=== PATIENT | female | born 1935 | race Caucasian/White ===

== ENCOUNTER 2018-03-13 14:37 | Observation (INO) ==
[2018-03-13] MEDS ORDERED: MORPHINE SULFATE 4 MG/1 ML IVP ONE (14:42)
--- NOTE | 2018-03-13 14:44 | PDOC ---
Fall HPI - General Chief Complaint: Fall Stated Complaint: fall Date Seen by Provider: 03/13/18 Time Seen by Provider: 14:44 Source: POSITIVE: Patient, Spouse Nurse's Notes Reviewed & Considered: Yes - History of Present Illness Initial Comments: Patient is an 82-year-old female who presents to the emergency department after a fall. She arrives by ambulance. History is obtained from medics and subsequently was relatively low trauma fall however she was complaining of diffuse pain. Patient cannot localize her pain is crying out and screaming. It is uncertain as to what is causing her pain or distress at this time. History is essentially unobtainable. Have you received a tetanus shot in the past 10 years?: Unknown - Patient Home Medications Home Medications: Home Medications levothyroxine 100 mcg tablet 100 mcg PO QD #90 tab 09/24/17 furosemide 40 mg tablet 40 mg PO QDAY #30 tab 01/27/18 lisinopril 2.5 mg tablet 2.5 mg PO QDAY #30 tab 01/27/18 magnesium L-lactate ER 84 mg tablet,extended release 84 mg PO BID #60 tab metoprolol succinate ER 25 mg tablet,extended release 24 hr 25 mg PO QDAY #30 tab 01/27/18 omeprazole 20 mg capsule,delayed release 20 mg PO BID #180 cap 01/27/18 potassium chloride ER 10 mEq tablet,extended release 10 meq PO QDAY #30 tab 08/11 pravastatin 80 mg tablet 80 mg PO QD #30 tab 01/27/18 nystatin 100,000 unit/gram topical powder 1 applic TOPICAL BID 02/10/18 vit C 150 mg-vit E 30 unit-lutein 5 [id number] 3 150 mg capsule 1 cap PO QDAY 02/10/18 hydrocortisone 2.5 % lotion 1 applic TOPICAL QID ml 02/18/18 apixaban 2.5 mg tablet 2.5 mg PO BID 02/25/18 - Patient Allergies Allergies/Adverse Reactions: Allergies 3 Allergy/AdvReac Type Severity Reaction Status Date / Time scopolamine Allergy Severe HALLUCINATI Verified 03/13/18 14:41 ONS Penicillins Allergy Intermediate RASH Verified 03/13/18 14:41 aspirin Allergy .BLEEDING Verified 03/13/18 14:41 latex Allergy SWELLING Verified 03/13/18 14:41 Past Medical History - heen HEENT History: Macular Degeneration Additional HEENT History: BILATERAL EYES Cardiovascular History: Hyperlipidemia Respiratory History: COPD, Shortness of Breath Additional Respiratory History: HX OF TB, TX DONE IN THE 1940'S Gastrointestinal History: GERD Additional Gastrointestinal History: GASTROPARESIS Genitourinary History: Denies History Endocrine History: Hypothyroidism Musculoskeletal History: Arthritis, Joint Pain, Other (please comment) Prosthesis or Implant: Yes (RIGHT KNEE/ LEFT SHOULDER) Additional Musculoskeletal History: NECK PAIN. OSTEOPENIA. SCOLIOSIS Neurological History: Denies History Blood Disorders: Denies History Psychiatric History: Denies History History of Sexually Transmitted Diseases: No Cancer History: Denies History, Skin History of MDRO: No History of Other Communicable Diseases: (MALARIA) Alcohol Use: Rarely In the Past 12 Months, Have Used or Abuse Any Substance: None Previous Surgical History: Yes Type / Date of Surgery: T&A/ APPY/ COLONOSCOPY/ HYST/ RIGHT SHOULDER SCOPE/ TUMORS REMOVED FROM OVARY NEGATIVE FOR CA/ SKIN CA REMOVED/ RIGHT TKA/ LEFT TSA Anesthesia Reactions: No Malignant Hyperthermia: No Additional Family History: FATHER- HEART DISEASE Past Medical History Reviewed: Reviewed - No Changes ROS - Limitations ROS Limitations: Clinical Condition, Other (please comment) (Review of systems is unobtainable at this time) Fall Physical Exam - General Appearance General Appearance: POSITIVE: Moderate Distress - HEENT HEENT: POSITIVE: Head Inspection Nml, Eyes Inspection Nml - Neck Neck: POSITIVE: Other (Possible tenderness to the cervical spine but is difficult to ascertain) - Respiratory / CVS Respiratory / CVS: POSITIVE: Tachycardia, Other (There is diffuse tenderness across the chest.) - Abdomen Additional Abdominal Details: There is mild distention to the abdomen. Diffuse tenderness to palpation. Decreased bowel sounds are noted. - Neuro / Psych Neuro / Psych: POSITIVE: Other (Patient is oriented only to person. Not to place or time. Appears to have poor insight to her medical conditions) - Skin Skin: POSITIVE: Warm - Back Back: POSITIVE: Other (Diffuse tenderness across the back both midline and paraspinal.) - Extremities Additional Extremities Details: There is 1+ edema in the lower extremities bilaterally and no obvious tenderness to palpation or deformity. No tenderness to palpation of the upper extremities. Fall Progress - Results Reviewed by me Xrays/CTs/US Reviewed by me: Yes Lab Results Reviewed by Me: Yes CBC and BMP: 03/13/18 14:50 03/13/18 14:50 Lab Results:: Laboratory Results 3 03/13/18 03/13/18 03/13/18 14:50 14:50 14:50 WBC 7.39 RBC 5.17 Hgb 12.9 Hct 42.6 MCV 82.4 MCH 25.0 L MCHC 30.3 L RDW Std Deviation 55.4 H RDW Coeff of Mandi 18.7 H Plt Count 434 H MPV 9.5 Immature Gran % (Auto) 0.1 Neut % (Auto) 70.0 Lymph % (Auto) 21.8 [place] % (Auto) 7.7 Eos % (Auto) 0 Baso % (Auto) 0.4 Immature Gran # (Auto) 0.01 Neut # (Auto) 5.17 Lymph # (Auto) 1.61 [place] # (Auto) 0.57 Eos # (Auto) 0 Baso # (Auto) 0.03 WBC Morphology Comment Normal morphology Plt Morphology Comment Normal morphology RBC Morph Comment Normal morphology PT 14.3 H INR 1.38 Sodium 140 Potassium 3.7 L Chloride 107 Carbon Dioxide 24 Anion Gap 9 BUN 9 Creatinine 0.8 BUN/Creatinine Ratio 11.25 Glucose 117 H Calculated Osmolality 289.0 Calcium 10.8 H Total Bilirubin 2.0 H AST 31 ALT 27 Alkaline Phosphatase 140 H Total Protein 7.7 Albumin 4.2 Globulin 3.5 Albumin/Globulin Ratio 1.20 L - Patient's Progress MDM / ED Course: Patient is an 82-year-old female who presents to the emergency department after a fall. Vital signs are notable for tachycardia and examination demonstrates an elderly female in moderate distress with diffuse pain. Of note patient is anticoagulated. This appears likely to be from atrial fibrillation via chart review. Given that she seemed to have significant pain and it was difficult to ascertain the location she did undergo CT scan of head neck chest abdomen pelvis. Her laboratory studies largely unremarkable heart rate improved into the 130s with time and pain control she is given morphine here. Patient's imaging studies suggest congestive heart failure with cardiomegaly and bilateral pleural effusions. Patient was noted to be hypoxic into the mid 80s she was placed on oxygen here. She does appear to be in somewhat of a decompensated state as above it's difficult to ascertain the underlying etiology. Given patient's poor insight, hypoxia, and findings of volume overloaded and I do not feel comfortable sending patient home for further outpatient treatment I consulted the hospitalist and she will be admitted for further care. Patient Care Time - Estimated PCT Patient Care Time (In Minutes): 45 Vital Signs - Recent Vital Signs Vital Signs: Vital Signs (Last 8 hours) Temp Pulse Resp BP Pulse Ox 03/13/18 16:12 98.2 F 150 H 18 108/72 93 03/13/18 15:35 98.2 F 150 H 18 108/72 93 - VS Reviewed Vital Signs Reviewed: Yes Discharge Clinical Impression: Pain, Altered mental status Volume overload Qualifiers: Hypervolemia type: other Qualified Code(s): E87.79 - Other fluid overload Discharge Disposition: Admit to Observation Condition: Fair
[2018-03-13 15:03] LABS: BASOPHILS # (AUTO) 0.03 10*3/UL; BASOPHILS % (AUTO) 0.4 % (0-1); EOSINOPHILS # (AUTO) 0 10*3/UL; EOSINOPHILS % (AUTO) 0 % (0-8); Hematocrit [HCT] 42.6 % (37.0-47.0); Hemoglobin [HGB] 12.9 g/dL (12.0-16.0); LYMPHOCYTES # (AUTO) 1.61 10*3/uL; MEAN CORPUSCULAR HGB CONC 30.3 g/dL (33-37); MEAN CORPUSCULAR VOLUME 82.4 FL (81-99); MEAN PLATELET VOLUME 9.5 FL (7.4-12.2); MONOCYTES # (AUTO) 0.57 10*3/UL (0.3-0.8); MONOCYTES % (AUTO) 7.7 % (5-15); NEUTROPHILS # (AUTO) 5.17 10*3/UL; RED BLOOD COUNT 5.17 10^6/uL (4.20-5.40)
[2018-03-13 15:04] LABS: PLATELET MORPHOLOGY COMMENT NORMAL MORPHOLOGY (NORM); RBC MORPHOLOGY COMMENT NORMAL MORPHOLOGY (NORM); WBC MORPHOLOGY COMMENT NORMAL MORPHOLOGY (NORM)
[2018-03-13 15:17] LABS: BLOOD UREA NITROGEN 9 mg/dL (7-22); BUN/CREATININE RATIO 11.25 (6-20); SERUM ALBUMIN 4.2 g/dL (3.5-4.8)
--- NOTE | 2018-03-13 16:29 | DI ---
CT Head WO Contrast 03/13/2018 2:42 PM History: Trauma Comparison: CT head 01/03/2018. Procedure: Noncontrast axial CT images through the head were obtained at 5 mm. Findings: There is no intracranial hemorrhage or extra-axial fluid collection. The ventricles are sy mmetric. There is moderate global atrophy which is within the expected range for age. Decreased att enuation in the periventricular and subcortical white matter is consistent with moderate chronic smal l vessel ischemic changes. There is otherwise normal wang-white differentiation without focal mass o r mass-effect. The visualized portions of the paranasal sinuses and mastoid air cells are clear. The re are postsurgical changes of the bilateral globes. Review of the osseous structures demonstrate no depressed calvarial fracture or aggressive osseous lesion. The facial soft tissues are unremarkable. Impression: 1. No acute intracranial findings. 2. Chronic changes as above.
--- NOTE | 2018-03-13 16:38 | DI ---
CT Cervical Spine WO Contrast 03/13/2018 2:42 PM History: Trauma Comparison: None. Procedure: Noncontrast CT images were obtained through the cervical spine for review in the axial, s agittal, and coronal planes. Findings: Osseous structures show no acute fracture. There is grade 1 anterolisthesis of C3 on C4 and C4 on C5. There is reversal of the normal cervical lordosis. Vertebral body heights are maintained. Moderate to severe intervertebral disc height loss is noted from the C3/4 through C6/7 levels. The sp ondylolisthesis at the C4/5 level results in osseous narrowing of the central canal to 10 mm. Uncover tebral joint and facet arthrosis results in osseous neuroforaminal narrowing as follows: Mild bilater al C2/3, mild right and severe left C3/4, severe right C4/5, moderate bilateral C5/6, moderate bilate ral C6/7, mild bilateral C7/T1. The pre-vertebral soft tissues are within normal limits. There is no cervical lymphadenopathy. Vascul ar structures are grossly intact, though evaluation is limited in the absence of intravenous contrast . The visualized parotid and thyroid glands exhibit normal unenhanced morphology. There is debris in the bilateral external auditory canals. Impression: 1. No evidence of acute cervical spine fracture. There is multilevel spondylolisthesis as outlined ab ove. Although this is most likely degenerative in nature, an MRI may be obtained if there is clinical concern for ligamentous injury. 2. There is reversal of the normal cervical lordosis which can be positional or secondary to muscle s pasm induced by pain. 3. Multilevel degenerative disc disease.
--- NOTE | 2018-03-13 17:00 | DI ---
CT Chest/Abdomen/Pelvis W Contrast 03/13/2018 2:42 PM History: trauma Comparison: CT abdomen/pelvis 01/03/2018. Technique: Contrast enhanced CT angiogram of the chest, abdomen, and pelvis per routine trauma protoc ol after the administration of 75 mL of Isovue intravenous contrast. There was no immediate complicat ion. Findings: The patient was uncooperative during scanning; therefore, the contrast bolus timing is subo ptimal for the evaluation of trauma. Patient motion creates artifact that limits evaluation of fine a natomic detail. Chest: There is no CT evidence of acute traumatic aortic injury. There are no main or segmental pulmo nary emboli. There is no CT evidence of mediastinal hematoma. Evaluation of the lungs demonstrates m oderate right and small left pleural effusions. There is atelectasis noted medially in the right midd le lobe. There is also bibasilar dependent atelectasis. Heart size is enlarged no pericardial effusio n. There are atheromatous aortic and coronary artery calcifications. The main pulmonary artery is dil ated at 4.9 cm, a finding associated with pulmonary artery hypertension. There is no mediastinal or h ilar lymphadenopathy. Abdomen/Pelvis: There is borderline hepatosplenomegaly. There is normal CT appearance of the gallblad geoff, adrenal glands, kidneys, and pancreas. Hollow viscus organs demonstrate normal course and maximino susana. There is Perihepatic, perisplenic, and pelvic free fluid with no free intraperitoneal air. No ab dominopelvic lymphadenopathy is present. Vascular structures are intact with atheromatous aortic calc ifications. The uterus is absent and the adnexa are unremarkable, though better evaluated with pelvic ultrasound. Musculoskeletal: There is no acute osseous abnormality. Diffuse anasarca is noted. The patient is sta tus post left shoulder hemiarthroplasty and there is a surgical anchor in the anterolateral right hum eral head consistent with rotator cuff repair. Multilevel degenerative disc disease of the thoracolum bar spine is noted with grade 1 anterolisthesis of L4 on L5. There is rectus diastases and a 1.7 cm f at-containing umbilical hernia. There are small bilateral fat-containing inguinal hernias. Impression: 1. No pneumothorax or new consolidation. There are bilateral pleural effusions, cardiomegaly, and lelo dence of pulmonary hypertension, with additional chronic findings as above. 2. There is anasarca and ascites which limits evaluation for trauma. Within this limitation and given the suboptimal bolus timing, there is no CT evidence of acute intra-abdominal or pelvic pathology. 3. No acute osseous abnormality.
[2018-03-13] MEDS ORDERED: LIDOCAINE W/ SODIUM BICARB 0.5 ML SYR SUBD PRN (18:44)
[2018-03-13] MEDS ORDERED: DOCUSATE 100 MG CAPSULE PO PRN (18:44)
[2018-03-13] MEDS ORDERED: ONDANSETRON 4 MG/2 ML VIAL IVP PRN (18:44)
[2018-03-13] MEDS ORDERED: CALCIUM CARBONATE 500 MG (TUMS) CHEWABLE TABLET PO PRN (18:44)
--- NOTE | 2018-03-13 18:46 | PDOC ---
HPI - History of Present Illness Date of Service: 03/13/18 Time of Service: 19:00 Chief Complaint: Fell at home History of Present Illness: This is an 82 years old female with medical history significant for history of congestive heart failure with ejection fraction 40%, history of atrial fibrillation, history of for malignant melanoma with recurrence now in the right upper arm soft tissue, hypothyroidism, advanced dementia and hypercholesterolemia who was brought to the hospital because she fall at home. Apparently The patient and her were unable to give a history but she appeared in discomfort so she was given morphine. Had the a CT of chest abdomen and pelvis and also CT of the head and spine there was no evidence of trauma but she had evidence of cardiomegaly and congestive heart failure and bilateral effusions. Because of the congestive heart failure and weakness she was admitted. No meaningful information can be obtained from the patient. She doesn't know her birthday. She does know where she is at and she doesn't know how did she end up in the hospital. She does not appear in distress though. She doesn't know what she takes. The information were obtained from reviewing the medical records. Past Medical History Medical History: 1.COPD. 2. Hypothyroidism. 3. Gastroparesis. 3. Macular degeneration. 4. history of TB in the 1940s treated. 5. History of congestive heart failure last ejection fraction was 40% based on an echo done in [place]. 6. History of A. fib. 7. Advanced dementia. 8. History of melanoma, now recurrent the soft tissue of the right posteriorly Surgical History: 1. Status post hysterectomy. 2. Status post thyroidectomy. 3. Status post knee replacement. 4. Status post shoulder replacement. 5. Status post the melanoma surgery before Past Social History: Apparently she does not smoke or drink the records. She lives with her . But recently there appears that the she was the treated at [facility] for congestive heart failure and A. fib and from there she went to the memory unit at [facility] but discharge home per family requests on March 01. Tobacco Use: Never Smoker In the Past 12 Months, Have Used or Abuse Any of the Following Substance: None Medication / Allergies Home Medications: Home Medications 3 Medication Instructions Recorded Confirmed Type levothyroxine 100 mcg tablet 100 mcg PO QD #90 tab 09/24/17 03/13/18 Rx furosemide 40 mg tablet 40 mg PO QDAY #30 tab 01/27/18 03/13/18 Rx lisinopril 2.5 mg tablet 2.5 mg PO QDAY #30 tab 01/27/18 03/13/18 Rx magnesium L-lactate ER 84 mg 84 mg PO BID #60 tab 01/27/18 03/13/18 Rx tablet,extended release metoprolol succinate ER 25 mg 25 mg PO QDAY #30 tab 01/27/18 03/13/18 Rx tablet,extended release 24 hr omeprazole 20 mg capsule,delayed 20 mg PO BID #180 cap 01/27/18 03/13/18 Rx release potassium chloride ER 10 mEq 10 meq PO QDAY #30 tab 01/27/18 03/13/18 Rx tablet,extended release pravastatin 80 mg tablet 80 mg PO QD #30 tab 01/27/18 03/13/18 Rx nystatin 100,000 unit/gram topical 1 applic TOPICAL BID 02/10/18 03/13/18 History powder vit C 150 mg-vit E 30 unit-lutein 1 cap PO QDAY 02/10/18 03/13/18 History 5 [id number] 3 150 mg capsule hydrocortisone 2.5 % lotion 1 applic TOPICAL QID ml 02/18/18 03/13/18 History apixaban 2.5 mg tablet 2.5 mg PO BID 02/25/18 03/13/18 History Allergies/Adverse Reactions: Allergies 3 Allergy/AdvReac Type Severity Reaction Status Date / Time scopolamine Allergy Severe HALLUCINATI Verified 03/13/18 14:41 ONS Penicillins Allergy Intermediate RASH Verified 03/13/18 14:41 aspirin Allergy .BLEEDING Verified 03/13/18 14:41 latex Allergy SWELLING Verified 03/13/18 14:41 Review of Systems - Review of Systems ROS Unobtainable: Due to Mental Status Exam - Vitals Vital Signs: Vital Signs Temperature 98.2 F Temperature Source Temporal Artery Scan Pulse Rate [Pulse Oximeter] 150 Respiratory Rate 18 Blood Pressure [Left Arm] 108/72 Pulse Ox 93 Oxygen Delivery Method Room Air Height 5 ft 4 in Weight 215 lb - General General Appearance: No Acute Distress, Cooperative - Head Head Exam: Normal Inspection - Eye Eye Exam: POSITIVE: Normal Appearance - ENT ENT Exam: POSITIVE: Normal Exam - Neck Neck Exam: Normal Inspection - Respiratory Respiratory Exam: POSITIVE: Clear to Auscultation - Bilaterally - Cardiovascular Cardiovascular Exam: POSITIVE: Irregular Rhythm, Tachycardia - GI/Abdominal GI/Abdominal Exam: POSITIVE: Normal Bowel Sounds, Non Tender, Non Distended, Soft, No Organomegaly - Rectal Rectal Exam: POSITIVE: Deferred - External Exam: POSITIVE: Deferred - Extremities Extremities Exam: POSITIVE: +1 Edema Additional Extremities Exam Details: There is a mass on the right upper arm posteriorly she is on. - Neurological Neurological Exam: POSITIVE: Alert, CN II-XII Intact, No Facial Droop, Speech Intact / Clear Additional Neurological Exam Details: She follows some of the command she moves all her limbs. - Psychiatric Psychiatric Exam: POSITIVE: Flat Affect Results - Labs CBC and BMP: 03/13/18 14:50 03/13/18 14:50 - Imaging Status: Report Reviewed by Me (1. No pneumothorax or new consolidation. There are bilateral pleural effusions, cardiomegaly, and evidence of pulmonary hypertension, with additional chronic findings as above. 2. There is anasarca and ascites which limits evaluation for trauma. Within this limitation and given the suboptimal bolus timing, there is no CT evidence of acute intra- abdominal or pelvic pathology. CT head no acute intracranial findings) Assessment and Plan - Patient Problems (1) Heart failure Current Visit: No Status: Chronic Comment: We will put her on IV diuretics. Continue with the lisinopril and metoprolol. Code(s): I50.9 - Heart failure, unspecified Qualifiers: Heart failure type: systolic Heart failure chronicity: chronic Qualified Code(s): I50.22 - Chronic systolic (congestive) heart failure (2) Atrial fibrillation Current Visit: Yes Status: Acute Comment: Heart rate is not controlled will give her additional dose of metoprolol. She is on eliquis will continue with it for now Code(s): I48.91 - Unspecified atrial fibrillation (3) Hypothyroidism Current Visit: No Status: Chronic Comment: We'll check her TSH will continue with the Synthroid. Not sure whether she takes her medications.
[2018-03-13] MEDS ORDERED: FUROSEMIDE 10 MG/1 ML - 2 ML VIAL IVP ONE (19:08)
[2018-03-13] MEDS ORDERED: LIDOCAINE HCL 2 % 10 ML JELLY URO-JECT TOPICAL PRN (19:09)
[2018-03-13] MEDS ORDERED: Metoprolol TARTRATE Tab 25 MG TAB PO ONE (19:10)
[2018-03-13 19:44] VITALS: RESP 20
[2018-03-13 20:47] LABS: BILIRUBIN,URINE NEGATIVE (NEG); CLARITY,URINE Slightly Cloudy (CLEAR); COLOR,URINE YELLOW (Y); GLUCOSE, URINE (UA) NEGATIVE (NEG); OCCULT BLOOD,URINE NEGATIVE (NEG); PH,URINE 5.5 (5.0-8.5); PROTEIN,URINE NEGATIVE (NEG); UROBILINOGEN,URINE 0.2 EU/dL (0.2)
[2018-03-13 20:51] LABS: SQUAMOUS EPITHELIAL CELL,UR FEW; URINE CRYSTALS FEW; URINE SAMPLE TYPE VOIDED SPECIMEN
[2018-03-13] MEDS ORDERED: Pravastatin 80mg Tab PO SCH (21:00)
[2018-03-13] MEDS: ACETAMINOPHEN 325 MG TABLET PO PRN (21:43)
[2018-03-13] MEDS: Apixaban Tab 2.5 MG TABLET PO SCH (21:43)
[2018-03-13] MEDS: OMEPRAZOLE 20 MG CAPSULE PO SCH (21:43)
[2018-03-14] MEDS: ACETAMINOPHEN 325 MG TABLET PO PRN ×2 (04:09→11:34)
[2018-03-14 05:04] LABS: BLOOD UREA NITROGEN 10 mg/dL (7-22); BUN/CREATININE RATIO 14.28 (6-20)
[2018-03-14] MEDS ORDERED: LEVOTHYROXINE 100 MCG TABLET PO SCH (05:30)
[2018-03-14] MEDS ORDERED: FUROSEMIDE 10 MG/1 ML - 4 ML IVP SCH (07:00)
[2018-03-14] MEDS: Apixaban Tab 2.5 MG TABLET PO SCH (08:14)
[2018-03-14] MEDS: OMEPRAZOLE 20 MG CAPSULE PO SCH (08:14)
[2018-03-14] MEDS ORDERED: METOPROLOL SUCCINATE 25 MG SR 24H TABLET PO SCH (09:00)
[2018-03-14] MEDS ORDERED: Potassium Chloride Tab 10 MEQ TAB PO SCH (09:00)
[2018-03-14] MEDS ORDERED: LISINOPRIL 5 MG TABLET PO SCH (09:00)
[2018-03-14] MEDS ORDERED: METOPROLOL SUCCINATE 50 MG SR 24H TABLET PO ONE (11:41)
[2018-03-14] MEDS ORDERED: METOPROLOL SUCCINATE 50 MG SR 24H TABLET PO SCH ×3 (11:45)
--- NOTE | 2018-03-14 12:36 | DCSUMMARY ---
Hospitalization Summary Hospital Course: Final Discharge Diagnosis: Current Visit Problems Problem Status Onset Code Atrial fibrillation Acute I48.91 Altered mental status Acute R41.82 Pain Acute R52 Volume overload Acute E87.70 Congestive heart failure Right arm melanoma with positive biopsy Diagnostic Data, Laboratory Data, and Procedures of Signifigance: Laboratory Results 03/13/18 03/13/18 03/13/18 Range/Units 14:50 14:50 14:50 WBC 7.39 (4.8-10.8) 10^3/uL RBC 5.17 (4.20-5.40) 10^6/uL Hgb 12.9 (12.0-16.0) g/dL Hct 42.6 (37.0-47.0) % MCV 82.4 (81-99) FL MCH 25.0 L (27-31) PG MCHC 30.3 L (33-37) g/dL RDW Std Deviation 55.4 H (39-50) fL RDW Coeff of Mandi 18.7 H (11.5-14.5) % Plt Count 434 H (140-350) 10*3/uL MPV 9.5 (7.4-12.2) FL Immature Gran % (Auto) 0.1 (0-5) % Neut % (Auto) 70.0 (50-80) % Lymph % (Auto) 21.8 (10-50) % Wallace % (Auto) 7.7 (5-15) % Eos % (Auto) 0 (0-8) % Baso % (Auto) 0.4 (0-1) % Immature Gran # (Auto) 0.01 10*3/UL Neut # (Auto) 5.17 10*3/UL Lymph # (Auto) 1.61 10*3/uL Wallace # (Auto) 0.57 (0.3-0.8) 10*3/UL Eos # (Auto) 0 10*3/UL Baso # (Auto) 0.03 10*3/UL WBC Morphology Comment Normal morphology (NORM) Plt Morphology Comment Normal morphology (NORM) RBC Morph Comment Normal morphology (NORM) PT 14.3 H (9.7-11.4) secs INR 1.38 (0.00-5.90) N/A Sodium 140 (135-145) meq/L Potassium 3.7 L (3.8-5.2) meq/L Chloride 107 (98-112) meq/L Carbon Dioxide 24 (23-33) meq/L Anion Gap 9 (5-20) BUN 9 (7-22) mg/dL Creatinine 0.8 (0.50-1.20) mg/dL BUN/Creatinine Ratio 11.25 (6-20) Glucose 117 H (78-110) mg/dL Calculated Osmolality 289.0 (267-292) mOsm/kg Calcium 10.8 H (8.7-10.7) mg/dL Total Bilirubin 2.0 H (0.3-1.2) mg/dL AST 31 (8-39) IU/L ALT 27 (9-52) IU/L Alkaline Phosphatase 140 H (38-126) IU/L Troponin I (< 0.040) ng/mL NT-Pro-B Natriuret Pep (0-450) PG/ML Total Protein 7.7 (6.1-8.0) g/dL Albumin 4.2 (3.5-4.8) g/dL Globulin 3.5 (2.50-4.10) g/dL Albumin/Globulin Ratio 1.20 L (1.3-2.0) mg/g TSH (0.2700-4.2000) uIU/mL Free T4 (0.93-1.71) ng/dL Ur Collection Type Urine Color (Y) Urine Clarity (CLEAR) Urine pH (5.0-8.5) Ur Specific [place] (1.005-1.030) Urine Protein (NEG) mg/dl Urine Glucose (UA) (NEG) mg/dL Urine Ketones (NEG) Urine Occult Blood (NEG) Urine Nitrate (NEG) Urine Bilirubin (NEG) Urine Urobilinogen (0.2) EU/dL Ur Leukocyte Esterase (NEG) Urine RBC (NONE) /hpf Urine WBC (NONE) Ur Squamous Epith Cells (NONE) Ur Renal Epithelial Cell (NONE) Urine Crystals Urine Bacteria (NONE) Urine Casts (NONE) Urine Mucus (NONE) Urine Trichomonas (NONE) Urine Yeast (NONE) Ur Culture Indicated? 03/13/18 03/13/18 03/13/18 Range/Units 19:27 19:27 19:27 WBC (4.8-10.8) 10^3/uL RBC (4.20-5.40) 10^6/uL Hgb (12.0-16.0) g/dL Hct (37.0-47.0) % MCV (81-99) FL MCH (27-31) PG MCHC (33-37) g/dL RDW Std Deviation (39-50) fL RDW Coeff of Mandi (11.5-14.5) % Plt Count (140-350) 10*3/uL MPV (7.4-12.2) FL Immature Gran % (Auto) (0-5) % Neut % (Auto) (50-80) % Lymph % (Auto) (10-50) % Wallace % (Auto) (5-15) % Eos % (Auto) (0-8) % Baso % (Auto) (0-1) % Immature Gran # (Auto) 10*3/UL Neut # (Auto) 10*3/UL Lymph # (Auto) 10*3/uL Wallace # (Auto) (0.3-0.8) 10*3/UL Eos # (Auto) 10*3/UL Baso # (Auto) 10*3/UL WBC Morphology Comment (NORM) Plt Morphology Comment (NORM) RBC Morph Comment (NORM) PT (9.7-11.4) secs INR (0.00-5.90) N/A Sodium (135-145) meq/L Potassium (3.8-5.2) meq/L Chloride (98-112) meq/L Carbon Dioxide (23-33) meq/L Anion Gap (5-20) BUN (7-22) mg/dL Creatinine (0.50-1.20) mg/dL BUN/Creatinine Ratio (6-20) Glucose (78-110) mg/dL Calculated Osmolality (267-292) mOsm/kg Calcium (8.7-10.7) mg/dL Total Bilirubin (0.3-1.2) mg/dL AST (8-39) IU/L ALT (9-52) IU/L Alkaline Phosphatase (38-126) IU/L Troponin I < 0.012 (< 0.040) ng/mL NT-Pro-B Natriuret Pep 3520 H (0-450) PG/ML Total Protein (6.1-8.0) g/dL Albumin (3.5-4.8) g/dL Globulin (2.50-4.10) g/dL Albumin/Globulin Ratio (1.3-2.0) mg/g TSH 50.7 H (0.2700-4.2000) uIU/mL Free T4 0.40 L (0.93-1.71) ng/dL Ur Collection Type Urine Color (Y) Urine Clarity (CLEAR) Urine pH (5.0-8.5) Ur Specific [place] (1.005-1.030) Urine Protein (NEG) mg/dl Urine Glucose (UA) (NEG) mg/dL Urine Ketones (NEG) Urine Occult Blood (NEG) Urine Nitrate (NEG) Urine Bilirubin (NEG) Urine Urobilinogen (0.2) EU/dL Ur Leukocyte Esterase (NEG) Urine RBC (NONE) /hpf Urine WBC (NONE) Ur Squamous Epith Cells (NONE) Ur Renal Epithelial Cell (NONE) Urine Crystals Urine Bacteria (NONE) Urine Casts (NONE) Urine Mucus (NONE) Urine Trichomonas (NONE) Urine Yeast (NONE) Ur Culture Indicated? 03/13/18 03/14/18 Range/Units 20:40 04:19 WBC (4.8-10.8) 10^3/uL RBC (4.20-5.40) 10^6/uL Hgb (12.0-16.0) g/dL Hct (37.0-47.0) % MCV (81-99) FL MCH (27-31) PG MCHC (33-37) g/dL RDW Std Deviation (39-50) fL RDW Coeff of Mandi (11.5-14.5) % Plt Count (140-350) 10*3/uL MPV (7.4-12.2) FL Immature Gran % (Auto) (0-5) % Neut % (Auto) (50-80) % Lymph % (Auto) (10-50) % Wallace % (Auto) (5-15) % Eos % (Auto) (0-8) % Baso % (Auto) (0-1) % Immature Gran # (Auto) 10*3/UL Neut # (Auto) 10*3/UL Lymph # (Auto) 10*3/uL Wallace # (Auto) (0.3-0.8) 10*3/UL Eos # (Auto) 10*3/UL Baso # (Auto) 10*3/UL WBC Morphology Comment (NORM) Plt Morphology Comment (NORM) RBC Morph Comment (NORM) PT (9.7-11.4) secs INR (0.00-5.90) N/A Sodium 142 (135-145) meq/L Potassium 4.4 (3.8-5.2) meq/L Chloride 109 (98-112) meq/L Carbon Dioxide 23 (23-33) meq/L Anion Gap 10 (5-20) BUN 10 (7-22) mg/dL Creatinine 0.7 (0.50-1.20) mg/dL BUN/Creatinine Ratio 14.28 (6-20) Glucose 96 (78-110) mg/dL Calculated Osmolality 292.0 (267-292) mOsm/kg Calcium 10.2 (8.7-10.7) mg/dL Total Bilirubin (0.3-1.2) mg/dL AST (8-39) IU/L ALT (9-52) IU/L Alkaline Phosphatase (38-126) IU/L Troponin I (< 0.040) ng/mL NT-Pro-B Natriuret Pep (0-450) PG/ML Total Protein (6.1-8.0) g/dL Albumin (3.5-4.8) g/dL Globulin (2.50-4.10) g/dL Albumin/Globulin Ratio (1.3-2.0) mg/g TSH (0.2700-4.2000) uIU/mL Free T4 (0.93-1.71) ng/dL Ur Collection Type Voided specimen Urine Color Yellow (Y) Urine Clarity Slightly cloudy (CLEAR) Urine pH 5.5 (5.0-8.5) Ur Specific [place] 1.015 (1.005-1.030) Urine Protein Negative (NEG) mg/dl Urine Glucose (UA) Negative (NEG) mg/dL Urine Ketones Negative (NEG) Urine Occult Blood Negative (NEG) Urine Nitrate Negative (NEG) Urine Bilirubin Negative (NEG) Urine Urobilinogen 0.2 (0.2) EU/dL Ur Leukocyte Esterase Trace (NEG) Urine RBC None (NONE) /hpf Urine WBC 3-5 (NONE) Ur Squamous Epith Cells Few (NONE) Ur Renal Epithelial Cell None (NONE) Urine Crystals Few Urine Bacteria None (NONE) Urine Casts None (NONE) Urine Mucus None (NONE) Urine Trichomonas None (NONE) Urine Yeast None (NONE) Ur Culture Indicated? 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 No doubt this could be contributing to her anasarca state in congestive heart failure might need to be replaced IV and needing the programming development project manager. Also patient presents with A. fib RVR rate controlled with the beta lorna extra dose given and congestive heart failure with elevated BNP bilateral pleural effusions and anasarca. She will be needing cardiology expertise with echocardiogram and aggressive diuresis and monitoring of her kidney function might require nephrology help as well I did discuss the case with the which as agreed with the transfer and would like for her to receive the best care possible . I did tell him that I do not have a endo tech here or senior courtroom clerk and he agrees with the transfer and to have these specialist take care of her his . Espinosa catheter has been placed. The right arm melanoma is being treated by Dr. aly Hernandez he is a general surgeon here in [place]. She is aware of the pathology report and is been in communication with the family for treatment. I believe patient and has not been taking medication and is an not capable of monitoring her care at home I did tell him this on the phone. Patient might need IV steroids IV Synthroid cardiology and nephrology and programming development project manager which I do not have available at this facility On the date of discharge, the patient was examined: Gen.: No acute distress, alert, nontoxic Heart: Regular rate and rhythm, no murmurs, clicks, gallops, or rubs Lungs: Clear to auscultation bilaterally, breathing is nonlabored Abdomen/GI: Normal tones on auscultation, soft, nontender, nondistended Musculoskeletal/extremities: No clubbing, cyanosis, or edema Vitals reviewed and are listed below Vital Signs (24 hrs) Temp Pulse Pulse Resp BP Pulse Ox 03/14/18 08:12 97 F 108 H 20 106/75 92 03/14/18 07:00 86 90 03/14/18 04:37 97.8 F 90 20 112/65 96 03/14/18 03:00 94 03/14/18 01:00 97.0 F 95 98 03/13/18 23:00 98 03/13/18 20:15 88 03/13/18 20:10 129 H 03/13/18 19:43 133 H 20 118/79 90 03/13/18 19:05 125 H 18 03/13/18 18:55 94 03/13/18 18:50 98.4 F 131 H 20 131/75 91 03/13/18 16:12 98.2 F 150 H 18 108/72 93 03/13/18 15:35 98.2 F 150 H 18 108/72 93 Assessment and Plan: 1. As per discharge assessments above 2. Disposition: Transferred to [facility] accepted by Dr. Jonathan Orozco in the emergency room 3. Condition on discharge, stable and improved. 4. Diet: regular diet 5. Activities: resume normal activities 6. Follow-Up: 1. PCP 2. 7. Medications at the Time of Discharge: Home Medications 3 Medication Instructions Recorded Confirmed Type levothyroxine 100 mcg tablet 100 mcg PO QD #90 tab 09/24/17 03/13/18 Rx furosemide 40 mg tablet 40 mg PO QDAY #30 tab 01/27/18 03/13/18 Rx lisinopril 2.5 mg tablet 2.5 mg PO QDAY #30 tab 01/27/18 03/13/18 Rx magnesium L-lactate ER 84 mg 84 mg PO BID #60 tab 01/27/18 03/13/18 Rx tablet,extended release metoprolol succinate ER 25 mg 25 mg PO QDAY #30 tab 01/27/18 03/13/18 Rx tablet,extended release 24 hr omeprazole 20 mg capsule,delayed 20 mg PO BID #180 cap 01/27/18 03/13/18 Rx release potassium chloride ER 10 mEq 10 meq PO QDAY #30 tab 01/27/18 03/13/18 Rx tablet,extended release pravastatin 80 mg tablet 80 mg PO QD #30 tab 01/27/18 03/13/18 Rx nystatin 100,000 unit/gram topical 1 applic TOPICAL BID 02/10/18 03/13/18 History powder vit C 150 mg-vit E 30 unit-lutein 1 cap PO QDAY 02/10/18 03/13/18 History 5 ip-cpaubens-ezyca 3 150 mg capsule hydrocortisone 2.5 % lotion 1 applic TOPICAL QID ml 02/18/18 03/13/18 History apixaban 2.5 mg tablet 2.5 mg PO BID 02/25/18 03/13/18 History Active Medications Generic Name Dose Route Start Last Admin Trade Name Freq PRN Reason Stop Dose Admin Acetaminophen 650 mg 03/13/18 18:44 03/14/18 11:34 Tylenol PO 650 mg Q6H PRN Administration Pain or Fever Apixaban 2.5 mg 03/13/18 21:00 03/14/18 08:14 Eliquis PO 2.5 mg BID ARIEL Administration Calcium Carbonate 1 - 2 tab 03/13/18 18:44 Tums PO Q6H PRN Heartburn Docusate Sodium 100 mg 03/13/18 18:44 Colace PO BID PRN Constipation Sodium Chloride 25 mls @ 200 mls/hr 03/13/18 18:44 Normal Saline 0.9% IV .Post Infusion PRN No Primary IV for Flush ONLY Furosemide 100 mg/ Sodium 100 mls @ 10 mls/hr 03/14/18 12:15 Chloride IV Q10H ARIEL 10 MG/HR Levothyroxine Sodium 100 mcg 03/14/18 05:30 03/14/18 04:53 Synthroid PO 100 mcg DAILY@0530 ARIEL Administration Lidocaine HCl 0.5 ml 03/13/18 18:44 Lidocaine Buffered Inj SUBD ONCE PRN IV Starts Lidocaine HCl 10 ml 03/13/18 19:09 Xylocaine Uro-Ject 2% TOPICAL ONCE PRN Discomfort catheter insertion Lisinopril 2.5 mg 03/14/18 09:00 03/14/18 08:14 Prinivil PO 2.5 mg DAILY ARIEL Administration Metoprolol Succinate 50 mg 03/14/18 11:45 Toprol Xl PO DAILY ARIEL Omeprazole 20 mg 03/13/18 21:00 03/14/18 08:14 Prilosec PO 20 mg BID ARIEL Administration Ondansetron HCl 4 mg 03/13/18 18:44 Zofran Inj IVP Q4H PRN NAUSEA / VOMITING Potassium Chloride 10 meq 03/14/18 09:00 03/14/18 08:14 Klor-Con PO 10 meq DAILY ARIEL Administration Pravastatin Sodium 80 mg 03/13/18 21:00 03/13/18 21:43 Pravachol PO 80 mg BEDTIME ARIEL Administration 8. Time, care, counseling and coordination of care for this discharge is greater than 30 minutes. Exam - Vitals Vital Signs: Vital Signs Temperature 97 F Temperature Source Temporal Artery Scan Pulse Rate [Pulse Oximeter] 108 Pulse Rate 86 Respiratory Rate 20 Blood Pressure [Left Arm] 106/75 Pulse Ox 92 Oxygen Flow Rate 3 Oxygen Delivery Method Nasal Cannula Height 5 ft 4 in Weight 208 lb 6.4 oz
[2018-03-14 13:19] VITALS: BP 113/68; TEMP 97.1; O2SAT 96
== END 2018-03-14 14:09 | disposition short-term general hospital (02) ==
LOC: MED/SURG 14:37 → ER 14:37 → MED/SURG 18:15
PROVIDERS: ADMIT Internal Medicine; ATTEND Internal Medicine